=== PATIENT | male | born 1940 | race Caucasian/White ===

== ENCOUNTER 2019-02-22 08:00 | Outpatient (CLI) | payer MEDICARE, BC | END 2019-02-22 23:59 | disposition home or self-care (01) | LOC: DIABETIC 08:00 | PROVIDERS: ATTEND Family Medicine | DX: E11.69 Type 2 diabetes mellitus with other specified complication (principal) | CPT/HCPCS: G0108 ==

== ENCOUNTER 2019-04-08 04:50 | Outpatient (CLI) | payer MEDICARE, BC | END 2019-04-08 23:59 | disposition home or self-care (01) | LOC: DIABETIC 04:50 | PROVIDERS: ATTEND Family Medicine | DX: E11.65 Type 2 diabetes mellitus with hyperglycemia (principal); Z79.899 Other long term (current) drug therapy | CPT/HCPCS: G0108 ==

== ENCOUNTER 2019-08-03 02:07 | Outpatient (CLI) | payer MEDICARE, BC | END 2019-08-03 23:59 | disposition home or self-care (01) | LOC: DIABETIC 02:07 | PROVIDERS: ATTEND Family Medicine | DX: E11.65 Type 2 diabetes mellitus with hyperglycemia (principal) | CPT/HCPCS: G0108 ==

== ENCOUNTER 2020-11-30 14:41 | Inpatient (IN) | payer MEDICARE, BC ==
[~2020-11-30] VITALS: Ht 185.4 cm; Wt 121.0 kg
[2020-11-30 15:57] LABS: BASOPHILS # (AUTO) 0.1 X10'3 (0-0.2); EOSINOPHILS # (AUTO) 0.1 X10'3 (0-0.9); EOSINOPHILS % (AUTO) 1.3 % (0-6); LYMPHOCYTES # (AUTO) 1.4 X10'3 (1.1-4.8); LYMPHOCYTES % (AUTO) 15.9 % (21-51); MEAN CORPUSCULAR HEMOGLOBIN 15.6 PG (27.0-31.0); MEAN CORPUSCULAR HGB CONC 29.1 g/dL (33.0-36.5); MEAN CORPUSCULAR VOLUME 53.7 FL (78-98); MEAN PLATELET VOLUME 8.4 FL (7.4-10.4); MONOCYTES # (AUTO) 0.8 X10'3 (0-0.9); MONOCYTES % (AUTO) 8.7 % (2-12); NEUTROPHILS # (AUTO) 6.3 X10'3 (1.8-7.7); NEUTROPHILS % (AUTO) 73.1 % (42-75); PLATELET COUNT 361 X10'3 (140-440); RED BLOOD COUNT 3.67 X10'6 (4.70-6.10); WHITE BLOOD COUNT 8.7 X10'3 (4.5-11.0)
[2020-11-30 16:02] LABS: HEMOGLOBIN 5.7 g/dl (14.0-17.9)
[2020-11-30 16:03] LABS: HEMATOCRIT 19.7 % (42.0-52.0)
[2020-11-30 16:09] LABS: ALANINE AMINOTRANSFERASE 8 U/L (12-78); ALBUMIN 3.4 G/DL (3.4-5.0); ALKALINE PHOSPHATASE 67 IU/L (46-116); ANION GAP 10 (8-16); ASPARTATE AMINO TRANSFERASE 15 U/L (10-37); BILIRUBIN,TOTAL 1.2 MG/DL (0.1-1.0); BLOOD UREA NITROGEN 32 MG/DL (7-18); BUN/CREATININE RATIO 29.4 (5.4-32.0); CALCIUM 9.1 MG/DL (8.5-10.1); CHLORIDE 106 MMOL/L (99-107); CREATININE 1.09 MG/DL (0.60-1.10); GLUCOSE 122 MG/DL (70-104); POTASSIUM 4.7 MMOL/L (3.5-5.1); SODIUM 141 MMOL/L (135-145); TOTAL CARBON DIOXIDE 25.2 MMOL/L (24-32); TOTAL PROTEIN 6.7 G/DL (6.4-8.2); eGFR 65 ML/MIN
--- NOTE | 2020-11-30 16:26 | NUR ---
PTS DAUGHTER NIEVES GIBBONS [phone] OK TO GIVE INFORMATION
[2020-11-30 16:58] LABS: ANISOCYTOSIS 3+; HYPOCHROMASIA 3+; MICROCYTOSIS 3+; PLATELET ESTIMATE NORMAL; POLYCHROMASIA 1+; TARGET CELLS FEW
[2020-11-30 16:59] LABS: ELLIPTOCYTES 1+; SCHISTOCYTES FEW
[2020-11-30] MEDS ORDERED: LANS30CA56 PO (17:23)
[2020-11-30] MEDS ORDERED: SIMV-45 PO (17:23)
[2020-11-30] MEDS ORDERED: PIOG30TA71 PO (17:23)
[2020-11-30] MEDS ORDERED: HYDR25TA5 PO (17:23)
[2020-11-30] MEDS ORDERED: CARV25TA2 PO (17:23)
[2020-11-30] MEDS ORDERED: LOSA100T57 PO (17:23)
[2020-11-30] MEDS ORDERED: ASPI-611 PO (17:23)
[2020-11-30 17:35] LABS: % IRON SATURATION 2 % (11-46); IRON 9 UG/DL (53-167); TOTAL IRON BINDING CAPACITY 418 UG/DL (259-388)
[2020-11-30] MEDS ORDERED: insulin Lispro (HumaLOG) vial - multi-dose SQ SCH (17:50)
[2020-11-30] MEDS ORDERED: ondansetron/PF 4mg/2ml inj IV PRN (17:50)
[2020-11-30] MEDS ORDERED: glucagon, human recombinant 1mg kit SUBCUT PRN (17:50)
[2020-11-30] MEDS ORDERED: dextrose 50%-water 50ml dispensing syringe IV PRN ×2 (17:50)
[2020-11-30] MEDS ORDERED: magnesium 4gm in 100ml NS 100 ML IV PRN (17:50)
[2020-11-30] MEDS ORDERED: dextrose ORAL solution 15 GM/59 ML bottle PO PRN ×2 (17:50)
[2020-11-30] MEDS ORDERED: magnesium 2GM in 50ml NS 50 ML IV PRN (17:50)
[2020-11-30] MEDS ORDERED: potassium Cl 20 mEq SR tablet PO PRN ×2 (17:50)
[2020-11-30] MEDS ORDERED: acetaminophen 325mg tablet PO PRN (17:50)
[2020-11-30] MEDS ORDERED: potassium Cl 40MEQ/1/2NS 520ml 520 ML IV PRN ×2 (17:50)
[2020-11-30] MEDS ORDERED: MESSAGE TO PHARMACY PO ONE (17:50)
[2020-11-30 18:49] LABS: HEMOGLOBIN A1C 6.5 % (4.5-6.2)
[2020-11-30] MEDS: pantoprazole 40MG/NS 100ML BAG 100 ML IV SCH (19:18)
[2020-11-30 19:30] VITALS: BP 149/69
[2020-11-30 19:48] VITALS: BP 152/64
--- NOTE | 2020-11-30 19:55 | NUR ---
Patient in room ORTHO 4021. I have received report from Helena MURDOCK and had the opportunity to ask questions and assume patient care.
[2020-11-30] MEDS: K and/or MAG REPLACEMENT MC SCH (20:00)
[2020-11-30 20:03] VITALS: BP 159/66
[2020-11-30] MEDS: atorvastatin 20mg tablet PO SCH (20:11)
[2020-11-30] MEDS: carVEDilol 12.5mg tablet PO SCH (20:11)
[2020-11-30] MEDS: insulin glargine (Lantus) pen - multi-dose SQ SCH (20:17)
[2020-11-30 21:03] VITALS: BP 137/68
[2020-11-30 22:00] VITALS: BP 137/68
[2020-11-30 22:10] VITALS: BP 131/60
[2020-11-30] MEDS: PEG 3350/Na sulf,bicarb,Cl/KCl oral sol 4 liter bottle PO SCH (22:42)
[2020-12-01] VITALS (14 sets, daily range): BP systolic 106–163; BP diastolic 48–87
[2020-12-01] MEDS: pantoprazole 40MG/NS 100ML BAG 100 ML IV SCH ×6 (00:35→21:16)
[2020-12-01 00:45] LABS: MEAN CORPUSCULAR HEMOGLOBIN 16.9 PG (27.0-31.0); MEAN CORPUSCULAR HGB CONC 30.4 g/dL (33.0-36.5); MEAN CORPUSCULAR VOLUME 55.6 FL (78-98); MEAN PLATELET VOLUME 8.5 FL (7.4-10.4); PLATELET COUNT 350 X10'3 (140-440); RED BLOOD COUNT 3.87 X10'6 (4.70-6.10); RED CELL DISTRIBUTION WIDTH 21.3 % (11.5-14.5); WHITE BLOOD COUNT 8.5 X10'3 (4.5-11.0)
[2020-12-01 00:49] LABS: HEMATOCRIT 21.5 % (42.0-52.0); HEMOGLOBIN 6.5 g/dl (14.0-17.9)
[2020-12-01] MEDS: PEG 3350/Na sulf,bicarb,Cl/KCl oral sol 4 liter bottle PO SCH (05:05)
--- NOTE | 2020-12-01 06:08 | NUR ---
Problems reprioritized. Patient report given, questions answered & plan of care reviewed with Dulce MURDOCK.
--- NOTE | 2020-12-01 06:46 | NUR ---
Patient in room ORTHO 4021. I have received report from German MURDOCK and had the opportunity to ask questions and assume patient care.
[2020-12-01 07:02] LABS: HEMATOCRIT 23.6 % (42.0-52.0); HEMOGLOBIN 7.3 g/dl (14.0-17.9); MEAN CORPUSCULAR HEMOGLOBIN 18.1 PG (27.0-31.0); MEAN CORPUSCULAR HGB CONC 31.1 g/dL (33.0-36.5); MEAN CORPUSCULAR VOLUME 58.2 FL (78-98); MEAN PLATELET VOLUME 8.4 FL (7.4-10.4); PLATELET COUNT 360 X10'3 (140-440); RED BLOOD COUNT 4.05 X10'6 (4.70-6.10); RED CELL DISTRIBUTION WIDTH 26.9 % (11.5-14.5); WHITE BLOOD COUNT 7.8 X10'3 (4.5-11.0)
[2020-12-01] MEDS: carVEDilol 12.5mg tablet PO SCH ×2 (07:14→19:49)
[2020-12-01] MEDS: losartan 50mg tablet PO SCH (07:14)
[2020-12-01] MEDS: K and/or MAG REPLACEMENT MC SCH ×2 (07:17→20:00)
[2020-12-01 07:21] LABS: ALANINE AMINOTRANSFERASE 16 U/L (12-78); ALBUMIN 3.3 G/DL (3.4-5.0); ALKALINE PHOSPHATASE 65 IU/L (46-116); ANION GAP 12 (8-16); ASPARTATE AMINO TRANSFERASE 16 U/L (10-37); BILIRUBIN,TOTAL 2.5 MG/DL (0.1-1.0); BLOOD UREA NITROGEN 25 MG/DL (7-18); BUN/CREATININE RATIO 22.1 (5.4-32.0); CALCIUM 9.1 MG/DL (8.5-10.1); CHLORIDE 107 MMOL/L (99-107); CREATININE 1.13 MG/DL (0.60-1.10); GLUCOSE 98 MG/DL (70-104); MAGNESIUM 2.2 MG/DL (1.5-2.4); POTASSIUM 3.9 MMOL/L (3.5-5.1); SODIUM 144 MMOL/L (135-145); TOTAL CARBON DIOXIDE 24.7 MMOL/L (24-32); TOTAL PROTEIN 6.6 G/DL (6.4-8.2); eGFR 62 ML/MIN
--- NOTE | 2020-12-01 09:25 | NUR ---
DM consult: Pt with A1c 6.5%, DM education not warranted at this time. Will continue to follow. Addendum: 12/01/20 at [address] Amended: Links added.
[2020-12-01] MEDS ORDERED: MIDAZolam 1 MG/ML 5ML VIAL ONE (10:17)
[2020-12-01] MEDS ORDERED: fentaNYL/PF 50MCG/1 ML 2ML syringe ONE (10:17)
[2020-12-01] MEDS ORDERED: LIDOcaine Viscous 15ml cup ONE (10:17)
--- NOTE | 2020-12-01 10:56 | NUR ---
instructed by GI nurse to hold IV iron until pt is back from scope.
[2020-12-01] MEDS: iron sucrose complex injection 200 MG in normal saline 100ml IV soln 100 ML IV SCH (14:01)
[2020-12-01 15:26] LABS: HEMATOCRIT 22.8 % (42.0-52.0); MEAN CORPUSCULAR HEMOGLOBIN 17.9 PG (27.0-31.0); MEAN CORPUSCULAR HGB CONC 30.4 g/dL (33.0-36.5); MEAN PLATELET VOLUME 8.2 FL (7.4-10.4); PLATELET COUNT 334 X10'3 (140-440); RED BLOOD COUNT 3.87 X10'6 (4.70-6.10); RED CELL DISTRIBUTION WIDTH 23.8 % (11.5-14.5); WHITE BLOOD COUNT 7.3 X10'3 (4.5-11.0)
[2020-12-01 15:32] LABS: HEMOGLOBIN 6.9 g/dl (14.0-17.9)
--- NOTE | 2020-12-01 16:41 | NUR ---
Blood transfusion started at 1631. Pt resting in bed, nurse at bedside. Vital signs BP 141/63 HR69, Temp98.0, O298% RA, RR 19. Will continue to monitor pt closely
--- NOTE | 2020-12-01 19:00 | NUR ---
Problems reprioritized. Patient report given, questions answered & plan of care reviewed with Shelly MURDOCK.
--- NOTE | 2020-12-01 19:01 | NUR ---
Patient in room ORTHO 4023. I have received report from HAYDE MURDOCK and had the opportunity to ask questions and assume patient care. Addendum: 12/01/20 at 1902 by Shelly Jacobson RN Amended: Links added.
[2020-12-01] MEDS: atorvastatin 20mg tablet PO SCH (19:49)
--- NOTE | 2020-12-01 20:00 | NUR ---
lab in to draw blood on pt, blood had completed infusion earlier.
[2020-12-01 20:43] LABS: HEMATOCRIT 26.7 % (42.0-52.0); HEMOGLOBIN 8.1 g/dl (14.0-17.9); MEAN CORPUSCULAR HEMOGLOBIN 18.4 PG (27.0-31.0); MEAN CORPUSCULAR HGB CONC 30.3 g/dL (33.0-36.5); MEAN CORPUSCULAR VOLUME 60.7 FL (78-98); MEAN PLATELET VOLUME 8.4 FL (7.4-10.4); PLATELET COUNT 343 X10'3 (140-440); RED CELL DISTRIBUTION WIDTH 30.7 % (11.5-14.5); WHITE BLOOD COUNT 9.8 X10'3 (4.5-11.0)
[2020-12-01] MEDS: insulin glargine (Lantus) pen - multi-dose SQ SCH (21:00)
--- NOTE | 2020-12-01 21:30 | NUR ---
H&h up after unit infused now 8.1& 26.7 no s&s of active bleed at this time.
[2020-12-02] VITALS (7 sets, daily range): BP systolic 124–161; BP diastolic 60–75
--- NOTE | 2020-12-02 00:35 | NUR ---
leads replaced and pt up to [facility] tolerated well had loose brown liq stool with drop of red blood.
--- NOTE | 2020-12-02 00:40 | NUR ---
had leakage on dry flows and changed pt skin care done and he wears a peripad and changed it.
[2020-12-02] MEDS: pantoprazole 40MG/NS 100ML BAG 100 ML IV SCH ×5 (01:07→20:16)
--- NOTE | 2020-12-02 02:00 | NUR ---
battery changed on heart monitor.
[2020-12-02 06:16] LABS: HEMATOCRIT 22.8 % (42.0-52.0); MEAN CORPUSCULAR HEMOGLOBIN 18.5 PG (27.0-31.0); MEAN CORPUSCULAR HGB CONC 30.8 g/dL (33.0-36.5); MEAN CORPUSCULAR VOLUME 60.3 FL (78-98); MEAN PLATELET VOLUME 8.5 FL (7.4-10.4); PLATELET COUNT 283 X10'3 (140-440); RED BLOOD COUNT 3.78 X10'6 (4.70-6.10); RED CELL DISTRIBUTION WIDTH 28.9 % (11.5-14.5); WHITE BLOOD COUNT 7.2 X10'3 (4.5-11.0)
--- NOTE | 2020-12-02 06:21 | NUR ---
Problems reprioritized. Patient report given, questions answered & plan of care reviewed with MICHELLE MURDOCK. Addendum: 12/02/20 at 0622 by Shelly Jacobson RN Amended: Links added.
[2020-12-02 06:35] LABS: ALANINE AMINOTRANSFERASE < 6 U/L (12-78); ALBUMIN 2.9 G/DL (3.4-5.0); ALBUMIN/GLOBULIN RATIO 1.1 (1.1-1.5); ALKALINE PHOSPHATASE 60 IU/L (46-116); ANION GAP 12 (8-16); ASPARTATE AMINO TRANSFERASE 14 U/L (10-37); BILIRUBIN,TOTAL 2.5 MG/DL (0.1-1.0); BLOOD UREA NITROGEN 17 MG/DL (7-18); BUN/CREATININE RATIO 14.4 (5.4-32.0); CALCIUM 8.5 MG/DL (8.5-10.1); CHLORIDE 109 MMOL/L (99-107); CREATININE 1.18 MG/DL (0.60-1.10); GLUCOSE 93 MG/DL (70-104); POTASSIUM 3.9 MMOL/L (3.5-5.1); SODIUM 145 MMOL/L (135-145); TOTAL CARBON DIOXIDE 24.3 MMOL/L (24-32); TOTAL PROTEIN 5.6 G/DL (6.4-8.2); eGFR 59 ML/MIN
--- NOTE | 2020-12-02 07:15 | NUR ---
spoke with steven Segovia earlier with no new orders PAGER ID: [phone] MESSAGE: [id number] Michelle H&H dropped again Critical 7.0 / 22.8
[2020-12-02] MEDS: carVEDilol 12.5mg tablet PO SCH ×2 (07:34→19:23)
[2020-12-02] MEDS: losartan 50mg tablet PO SCH (07:35)
[2020-12-02] MEDS: iron sucrose complex injection 200 MG in normal saline 100ml IV soln 100 ML IV SCH (07:35)
[2020-12-02] MEDS: K and/or MAG REPLACEMENT MC SCH ×2 (08:00→19:39)
--- NOTE | 2020-12-02 09:28 | NUR ---
PAGER ID: [phone] MESSAGE: [phone] Michelle Jimenez would like to speak with you [facility] [phone]
[2020-12-02] MEDS ORDERED: octreotide inj. 1,250 MCG in normal saline 250ml IV soln 243.75 ML IV SCH (11:00)
--- NOTE | 2020-12-02 12:07 | NUR ---
Daughter at bedside. Dr Moreira to consult with patient regarding possible surgery today.
[2020-12-02 15:22] LABS: HEMOGLOBIN 8.1 g/dl (14.0-17.9); MEAN CORPUSCULAR HEMOGLOBIN 19.6 PG (27.0-31.0); MEAN CORPUSCULAR HGB CONC 31.3 g/dL (33.0-36.5); MEAN CORPUSCULAR VOLUME 62.6 FL (78-98); MEAN PLATELET VOLUME 8.4 FL (7.4-10.4); PLATELET COUNT 279 X10'3 (140-440); RED BLOOD COUNT 4.15 X10'6 (4.70-6.10); RED CELL DISTRIBUTION WIDTH 32.4 % (11.5-14.5); WHITE BLOOD COUNT 7.4 X10'3 (4.5-11.0)
--- NOTE | 2020-12-02 17:52 | NUR ---
PAGER ID: [phone] MESSAGE: [phone] Guido lungs are wheezy after blood. Lasix? [phone] MICHELLE
[2020-12-02] MEDS ORDERED: furosemide 40mg/4ml inj IV ONE (17:55)
[2020-12-02] MEDS: atorvastatin 20mg tablet PO SCH (19:24)
[2020-12-02 20:38] LABS: HEMATOCRIT 27.6 % (42.0-52.0); HEMOGLOBIN 8.5 g/dl (14.0-17.9); MEAN CORPUSCULAR HEMOGLOBIN 19.4 PG (27.0-31.0); MEAN CORPUSCULAR HGB CONC 30.9 g/dL (33.0-36.5); MEAN CORPUSCULAR VOLUME 62.7 FL (78-98); MEAN PLATELET VOLUME 8.4 FL (7.4-10.4); PLATELET COUNT 325 X10'3 (140-440); RED CELL DISTRIBUTION WIDTH 32.1 % (11.5-14.5); WHITE BLOOD COUNT 9.8 X10'3 (4.5-11.0)
[2020-12-02] MEDS: insulin glargine (Lantus) pen - multi-dose SQ SCH (21:00)
[2020-12-03] MEDS: pantoprazole 40MG/NS 100ML BAG 100 ML IV SCH ×3 (01:55→11:00)
[2020-12-03 06:00] VITALS: BP 134/52
[2020-12-03 06:22] LABS: HEMATOCRIT 25.6 % (42.0-52.0); HEMOGLOBIN 7.9 g/dl (14.0-17.9); MEAN CORPUSCULAR HEMOGLOBIN 19.5 PG (27.0-31.0); MEAN CORPUSCULAR HGB CONC 30.8 g/dL (33.0-36.5); MEAN CORPUSCULAR VOLUME 63.4 FL (78-98); MEAN PLATELET VOLUME 8.4 FL (7.4-10.4); PLATELET COUNT 280 X10'3 (140-440); RED BLOOD COUNT 4.04 X10'6 (4.70-6.10); WHITE BLOOD COUNT 8.8 X10'3 (4.5-11.0)
[2020-12-03 06:40] LABS: ALANINE AMINOTRANSFERASE 13 U/L (12-78); ALKALINE PHOSPHATASE 61 IU/L (46-116); ANION GAP 9 (8-16); ASPARTATE AMINO TRANSFERASE 14 U/L (10-37); BILIRUBIN,TOTAL 3.1 MG/DL (0.1-1.0); BLOOD UREA NITROGEN 14 MG/DL (7-18); BUN/CREATININE RATIO 10.5 (5.4-32.0); CALCIUM 8.5 MG/DL (8.5-10.1); CHLORIDE 108 MMOL/L (99-107); CREATININE 1.33 MG/DL (0.60-1.10); GLUCOSE 117 MG/DL (70-104); MAGNESIUM 1.9 MG/DL (1.5-2.4); POTASSIUM 3.6 MMOL/L (3.5-5.1); SODIUM 143 MMOL/L (135-145); TOTAL CARBON DIOXIDE 26.5 MMOL/L (24-32); eGFR 52 ML/MIN
[2020-12-03] MEDS: K and/or MAG REPLACEMENT MC SCH (08:00)
[2020-12-03] MEDS: iron sucrose complex injection 200 MG in normal saline 100ml IV soln 100 ML IV SCH (08:20)
[2020-12-03] MEDS: carVEDilol 12.5mg tablet PO SCH (08:21)
[2020-12-03] MEDS: losartan 50mg tablet PO SCH (08:22)
[2020-12-03 11:36] VITALS: BP 145/60
[2020-12-03 11:51] VITALS: BP 147/69
[2020-12-03 13:04] VITALS: BP 146/62
[2020-12-03 14:00] VITALS: BP 149/76
[2020-12-03] MEDS ORDERED: LANS30CA56 PO (15:10)
[2020-12-03 15:30] VITALS: BP 146/62
--- NOTE | 2020-12-05 13:49 | NUR ---
CASE MANAGEMENT DISCHARGE FOLLOW UP: Spoke with pt's daughter, Jonna, via telephone as pt is currently on phone with [facility] (trying to get Rx mailed to him vs p/u in store). Reports that pt is doing well, being ornery, has more energy than he has had in a long time, slept really well the last few nights as he is taking his allergy pill in the evening instead of the morning; denies pt c/o CP, SOB, bleeding, weakness. States pt taking iron supplementation with Vitamin C, pt does admit to darker stools s/p iron supplementation. Verbalizes understanding of s/sx requiring further evaluation/emergent assistance. Verbalizes understanding of new and current medications. Verbalizes compliance with MD discharge instructions, pt scheduled for surgery with Dr Moreira next week, 12/11/20 @1200, verbalizes understand that pt is to only have clear liquids the day prior to surgery and NPO after midnight on day of surgery. States no further questions/concerns at this time.
== END 2020-12-03 17:05 | disposition home or self-care (01) | DRG 376 ==
LOC: ER 14:41 → ED HOLD 17:46 → EDBEDREQ 18:41 → ORTHO 4S 19:05
PROVIDERS: ADMIT Family Medicine; ATTEND Family Medicine
PROC: 30233N1 Transfusion of Nonautologous Red Blood Cells into Peripheral Vein, Percutaneous Approach (ICD-10-PCS; 2020-11-30)
PROC: 0DB68ZX Excision of Stomach, Via Natural or Artificial Opening Endoscopic, Diagnostic (ICD-10-PCS; principal; 2020-12-01)
PROC: 0DB48ZZ Excision of Esophagogastric Junction, Via Natural or Artificial Opening Endoscopic (ICD-10-PCS; 2020-12-01)
PROC: 0DBK8ZX Excision of Ascending Colon, Via Natural or Artificial Opening Endoscopic, Diagnostic (ICD-10-PCS; 2020-12-01)
PROC: 0DBL8ZZ Excision of Transverse Colon, Via Natural or Artificial Opening Endoscopic (ICD-10-PCS; 2020-12-01)
DX: C18.9 Malignant neoplasm of colon, unspecified (principal); K63.9 Disease of intestine, unspecified; E78.5 Hyperlipidemia, unspecified; R32 Unspecified urinary incontinence; I10 Essential (primary) hypertension; E11.9 Type 2 diabetes mellitus without complications; K21.9 Gastro-esophageal reflux disease without esophagitis; M19.90 Unspecified osteoarthritis, unspecified site; D50.9 Iron deficiency anemia, unspecified; R19.5 Other fecal abnormalities; K44.9 Diaphragmatic hernia without obstruction or gangrene; K57.30 Diverticulosis of large intestine without perforation or abscess without bleeding; K29.70 Gastritis, unspecified, without bleeding; K63.5 Polyp of colon; K64.8 Other hemorrhoids; K31.7 Polyp of stomach and duodenum; Z79.84 Long term (current) use of oral hypoglycemic drugs; Z79.899 Other long term (current) drug therapy; Z83.3 Family history of diabetes mellitus; Z87.891 Personal history of nicotine dependence; Z79.82 Long term (current) use of aspirin; Z98.42 Cataract extraction status, left eye; Z98.41 Cataract extraction status, right eye
CPT/HCPCS: 36415; 36430; 43239; 43251; 43255; 45380; 45381; 45382; 45385; 80053; 82607; 82948; 83036; 83540; 83550; 83735; 85008; 85025; 85027; 86885; 86900; 86901; 86920; 87081; 97110; 97161; 97530; 99152; 99153; 99285; A4620; C1773; C9113; G0378; J1756; J1815; J1940; J2250; J2354; J3010; J7040; J7050; P9016

== ENCOUNTER 2021-05-31 11:05 | Day surgery (SDC) | payer MEDICARE, BC ==
[~2021-05-31] VITALS: Ht 185.4 cm; Wt 114.5 kg
[2021-05-31] VITALS (7 sets, daily range): BP systolic 155–182; BP diastolic 73–99
[~2021-05-31 11:05] MED LIST: CARV25TA2 PO; FURO20TA4 PO; LANS30CA56 PO; LOSA100T57 PO; PIOG30TA71 PO; SIMV-45 PO
[2021-05-31] MEDS ORDERED: normal saline 1000ml 1,000 ML IV SCH (11:25)
[2021-05-31] MEDS ORDERED: ASCO-139 PO (11:41)
[2021-05-31] MEDS ORDERED: DOCU-148 PO (11:41)
[2021-05-31] MEDS ORDERED: ASPI81TA52 PO (11:41)
[2021-05-31] MEDS ORDERED: FERR-119 PO (11:41)
[2021-05-31] MEDS ORDERED: LIDOcaine 1% 30ml preserv. free vial SQ STA (13:52)
--- NOTE | 2021-05-31 15:00 | NUR ---
REHELD PRESSURE TO RIGHT PAROTID AREA FOR 10 MIN TO HELP DECREASE SWELLING WITH IMPROVEMENT.
--- NOTE | 2021-05-31 15:20 | NUR ---
NO ADDITIONAL SWELLING NOTED. EDUCATED PT AND DAUGHTER ABOUT RISKS OF SWELLING AND TO GO TO ED IF SWELLING CONTINUES. VERBALIZED UNDERSTANDING.
== END 2021-05-31 15:40 | disposition home or self-care (01) ==
LOC: SSTAY O 11:05
PROVIDERS: ATTEND Preventive Medicine Aerospace Medicine
DX: K11.8 Other diseases of salivary glands (principal); C07 Malignant neoplasm of parotid gland; Z79.899 Other long term (current) drug therapy; Z79.82 Long term (current) use of aspirin; Z85.038 Personal history of other malignant neoplasm of large intestine; Z83.3 Family history of diabetes mellitus
CPT/HCPCS: 10005; 88184; 88185

== ENCOUNTER 2022-08-12 17:42 | Emergency (ER) | payer MEDICARE, BC ==
[~2022-08-12] VITALS: Ht 185.4 cm; Wt 120.5 kg
[~2022-08-12 17:42] MED LIST changes: +ASCO-139 PO; +ASPI81TA52 PO; +DOCU-148 PO; +FERR-119 PO; -FURO20TA4 PO; -LOSA100T57 PO
[2022-08-12 18:48] LABS: BASOPHILS # (AUTO) 0.1 X10'3 (0-0.2); BASOPHILS % (AUTO) 0.6 % (0-1); EOSINOPHILS # (AUTO) 0.1 X10'3 (0-0.9); EOSINOPHILS % (AUTO) 0.7 % (0-6); HEMATOCRIT 48.4 % (42.0-52.0); HEMOGLOBIN 15.9 g/dl (14.0-17.9); LYMPHOCYTES % (AUTO) 10.5 % (21-51); MEAN CORPUSCULAR HEMOGLOBIN 28.9 PG (27.0-31.0); MEAN CORPUSCULAR HGB CONC 32.7 g/dL (33.0-36.5); MEAN CORPUSCULAR VOLUME 88.3 FL (78-98); MONOCYTES # (AUTO) 0.3 X10'3 (0-0.9); MONOCYTES % (AUTO) 3.4 % (2-12); NEUTROPHILS # (AUTO) 7.8 X10'3 (1.8-7.7); NEUTROPHILS % (AUTO) 84.8 % (42-75); PLATELET COUNT 208 X10'3 (140-440); RED BLOOD COUNT 5.48 X10'6 (4.70-6.10); RED CELL DISTRIBUTION WIDTH 14.4 % (11.5-14.5); WHITE BLOOD COUNT 9.2 X10'3 (4.5-11.0)
[2022-08-12 19:08] LABS: ALANINE AMINOTRANSFERASE 14 U/L (12-78); ALBUMIN 3.7 G/DL (3.4-5.0); ALKALINE PHOSPHATASE 77 IU/L (46-116); ANION GAP 10 (8-16); ASPARTATE AMINO TRANSFERASE 12 U/L (10-37); BILIRUBIN,TOTAL 1.6 MG/DL (0.1-1.0); BLOOD UREA NITROGEN 17 MG/DL (7-18); BUN/CREATININE RATIO 20.2 (5.4-32.0); CALCIUM 9.5 MG/DL (8.5-10.1); CHLORIDE 106 MMOL/L (99-107); CREATININE 0.84 MG/DL (0.60-1.10); GLUCOSE 164 MG/DL (70-104); POTASSIUM 3.9 MMOL/L (3.5-5.1); SODIUM 140 MMOL/L (135-145); TOTAL PROTEIN 7.3 G/DL (6.4-8.2); eGFR 87 ML/MIN
[2022-08-12 22:43] LABS: CLARITY,URINE CLEAR (Clear); COLOR,URINE YELLOW (Yellow); GLUCOSE, URINE NEGATIVE (Neg); KETONES,URINE NEGATIVE (Neg); LEUKOCYTE ESTERASE ,URINE NEGATIVE (Neg); NITRITES, URINE NEGATIVE (Neg); OCCULT BLOOD,URINE NEGATIVE (Neg); PROTEIN,URINE 30 mg/dl (Neg); UROBILINOGEN,URINE 0.2 E.U/dL (0.2-1.0)
[2022-08-12 22:46] LABS: UA COLLECTION TYPE URINAL
[2022-08-12 22:51] LABS: BACTERIA,URINE NONE SEEN /HPF (Neg); MUCUS STRANDS NONE SEEN /LPF (Neg); RBC,URINE 0-2 /HPF (0-2); SQUAMOUS EPITHELIAL CELL,UR NONE SEEN /LPF (FEW); WBC,URINE 0-4 /HPF (0-4)
[2022-08-13 00:05] VITALS: BP 159/90
== END 2022-08-13 01:20 | disposition home or self-care (01) ==
LOC: ER 17:44
DX: R42 Dizziness and giddiness (principal); R11.2 Nausea with vomiting, unspecified; M19.90 Unspecified osteoarthritis, unspecified site
CPT/HCPCS: 36415; 71045; 80053; 81001; 82948; 83880; 84484; 85025; 93005; 99285

== ENCOUNTER 2024-04-04 02:22 | Emergency (ER) | payer MEDICARE, BC ==
[~2024-04-04] VITALS: Ht 182.9 cm; Wt 101.8 kg
[2024-04-04 02:57] LABS: COLOR,URINE RED (Yellow); UA COLLECTION TYPE CLN CATCH MIDSTREAM
[2024-04-04 02:58] LABS: CLARITY,URINE BLOODY (Clear)
[2024-04-04 03:05] LABS: RBC,URINE TNTC /HPF (0-2); WBC,URINE 0-4 /HPF (0-4)
[2024-04-04 03:06] LABS: BACTERIA,URINE 1+ /HPF (Neg); SQUAMOUS EPITHELIAL CELL,UR FEW /LPF (FEW)
[2024-04-04 03:35] LABS: BASOPHILS # (AUTO) 0.1 X10'3 (0-0.2); EOSINOPHILS # (AUTO) 0.2 X10'3 (0-0.9); EOSINOPHILS % (AUTO) 2.5 % (0-6); HEMATOCRIT 38.8 % (42.0-52.0); HEMOGLOBIN 12.6 g/dl (14.0-17.9); LYMPHOCYTES # (AUTO) 1.3 X10'3 (1.1-4.8); LYMPHOCYTES % (AUTO) 15.3 % (21-51); MEAN CORPUSCULAR HEMOGLOBIN 27.5 PG (27.0-31.0); MEAN CORPUSCULAR HGB CONC 32.4 g/dL (33.0-36.5); MEAN CORPUSCULAR VOLUME 84.6 FL (78-98); MEAN PLATELET VOLUME 7.5 FL (7.4-10.4); MONOCYTES # (AUTO) 0.8 X10'3 (0-0.9); MONOCYTES % (AUTO) 9.5 % (2-12); NEUTROPHILS # (AUTO) 6.1 X10'3 (1.8-7.7); NEUTROPHILS % (AUTO) 71.7 % (42-75); PLATELET COUNT 241 X10'3 (140-440); RED BLOOD COUNT 4.58 X10'6 (4.70-6.10); WHITE BLOOD COUNT 8.5 X10'3 (4.5-11.0)
[2024-04-04 03:45] LABS: INR 1.2 INR; PROTHROMBIN TIME 12.1 SECONDS (9.0-12.0)
[2024-04-04 03:50] LABS: ALANINE AMINOTRANSFERASE 14 U/L (12-78); ALBUMIN/GLOBULIN RATIO 0.9 (1.1-1.5); ALKALINE PHOSPHATASE 74 IU/L (46-116); ANION GAP 7 (8-16); ASPARTATE AMINO TRANSFERASE 12 U/L (10-37); BILIRUBIN,TOTAL 1.2 MG/DL (0.1-1.0); BLOOD UREA NITROGEN 11 MG/DL (7-18); BUN/CREATININE RATIO 11.8 (10.0-20.0); CALCIUM 8.9 MG/DL (8.5-10.1); CHLORIDE 108 MMOL/L (99-107); CREATININE 0.93 MG/DL (0.60-1.10); GLUCOSE 128 MG/DL (70-104); POTASSIUM 3.9 MMOL/L (3.5-5.1); SODIUM 142 MMOL/L (135-145); TOTAL CARBON DIOXIDE 26.8 MMOL/L (24-32); TOTAL PROTEIN 6.3 G/DL (6.4-8.2); eCRCL 65 ML/MIN; eGFR 77 ML/MIN
[2024-04-04] MEDS: LidoCAINE 2% Topical Jelly 11mL syringe (UROJET) TOP ONE (04:55)
[2024-04-04 05:48] VITALS: BP 151/89; PULSE 79; RESP 14; TEMP 98.2; O2SAT 98
== END 2024-04-04 05:50 | disposition home or self-care (01) ==
LOC: ER 02:23
DX: R31.9 Hematuria, unspecified (principal); M19.90 Unspecified osteoarthritis, unspecified site; Z98.890 Other specified postprocedural states; Z79.899 Other long term (current) drug therapy; Z79.82 Long term (current) use of aspirin
CPT/HCPCS: 36415; 51700; 80053; 81001; 85025; 85610; 99285; A4314; A4340